=== PATIENT | male | born 1950 | race American Indian/Alaskan Native ===

== ENCOUNTER 2018-03-29 13:26 | Day surgery (SDC) | payer MEDICARE ==
[~2018-03-29 13:26] MED LIST: ANCEF/STERILE WATER 2 GM/20 ML IV NR
[2018-03-29] MEDS ORDERED: DILAUDID IV PRN (14:23)
--- NOTE | 2018-03-29 14:24 | Anesthesia Day of Surgery ---
Anesthesia Day of Surgery - Day of Surgery Patient Examined: Yes Patient H&P Reviewed: Yes Patient is NPO: Yes Beta Blockers: No Cardiac Clearance: No Pulmonary Clearance: No
--- NOTE | 2018-03-29 14:42 | Anesthesia Day of Surgery ---
Anesthesia Day of Surgery - Day of Surgery Patient Examined: Yes Patient H&P Reviewed: Yes Patient is NPO: Yes Beta Blockers: No Cardiac Clearance: No Pulmonary Clearance: No
--- NOTE | 2018-03-29 14:42 | Anesthesia Consultation ---
Anesthesia Consult and Med Hx Date of service: 03/29/18 - Airway Anesthetic Teeth Evaluation: Good ROM Head & Neck: Adequate Mallampati Class: Class III Intubation Access Assessment: Possibly Difficult - Pulmonary Exam CTA: Yes - Cardiac Exam Cardiac Exam: RRR - Pre-Operative Health Status ASA Pre-Surgery Classification: ASA3 - Pulmonary Hx Smoking: Yes (STOPPED 1995 , 1 PPD X 20 YRS) Hx Asthma: Yes (INHALER PRN) Hx Sleep Apnea: No (GREG PRE SCREEN HIGH RISK) - Cardiovascular System Hx Hypertension: Yes (1995) Hx Peripheral Vascular Disease: Yes (RT BKA) - Other Systems Hx Cancer: No
--- NOTE | 2018-03-29 14:47 | Anesthesia Consultation ---
Anesthesia Consult and Med Hx Date of service: 03/29/18 - Airway Anesthetic Teeth Evaluation: Poor ROM Head & Neck: Inadequate Mental/Hyoid Distance: Inadequate Mallampati Class: Class III Intubation Access Assessment: Possibly Difficult - Pulmonary Exam CTA: Yes - Cardiac Exam Cardiac Exam: RRR - Pre-Operative Health Status ASA Pre-Surgery Classification: ASA4 Nerve Block: fpc chronically ill - Pulmonary Hx Smoking: Yes (STOPPED 1995 , 1 PPD X 20 YRS) Hx Asthma: Yes (INHALER PRN) Hx Sleep Apnea: No (GREG PRE SCREEN HIGH RISK) - Cardiovascular System Hx Hypertension: Yes (1995) Hx Peripheral Vascular Disease: Yes (RT BKA) - Central Nervous System Hx Neuromuscular Disorder: No (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
[2018-03-29] MEDS ORDERED: NACL 0.9% 1000 ML 1,000 ML IV SCH (15:00)
[2018-03-29] MEDS ORDERED: SUBLIMAZE ONE (16:38)
[2018-03-29] MEDS ORDERED: XYLOCAINE MPF 2% ONE (16:38)
[2018-03-29] MEDS ORDERED: DIPRIVAN 10 MG/ML IV ONE (16:39)
[2018-03-29] MEDS ORDERED: WATER FOR IRRIG STERILE IR ONE (17:00)
[2018-03-29] MEDS ORDERED: ZOFRAN ONE (17:44)
--- NOTE | 2018-03-29 17:44 | Short Stay Summary ---
Short Stay Documentation Date of service: 03/29/18 - History H&P: obtained from office - Allergies and Medications Current Medications: Allergies No Known Allergies Allergy (Verified 03/28/18 10:52) Home Medications Medication Instructions Recorded Confirmed Last Taken Type AtorvaSTATin [Lipitor] 10 mg PO QHS 03/28/18 03/29/18 03/26/18 09:00 History Budesonide/Formoterol Fumarate 10.2 gm IH PRN PRN 03/28/18 03/29/18 03/29/18 07: 00 History [Symbicort 160-4.5 Mcg Inhaler] Carvedilol [Coreg] 12.5 mg PO BID 03/28/18 03/29/18 03/29/18 07:00 History Ciprofloxacin HCl [Cipro] 500 mg PO BID 03/28/18 03/29/18 03/28/18 17:00 History Clopidogrel Bisulfate [Plavix] 75 mg PO DAILY 03/28/18 03/28/18 03/27/18 History Enalapril Maleate [Vasotec] 10 mg PO BID 03/28/18 03/29/18 03/29/18 07:00 History HYDROcodone/APAP 5-325 [[place] 1 each PO Q6HR PRN 03/28/18 03/29/18 03/25/18 17: 00 History 5/325] Ondansetron [Zofran TAB] 4 mg PO Q8HR PRN 03/28/18 03/29/18 03/28/18 17:00 History Potassium Chloride [K-Dur] 20 meq PO QDAY 03/28/18 03/29/18 03/29/18 07:00 History Active Medications Cefazolin Sodium (Ancef/Sterile Water 2 Gm/20 Ml) 2 gm IV PREOP NR Stop: 03/29/18 23:59 Hydromorphone HCl (Dilaudid) 0.5 mg IV Q10MIN PRN PRN Reason: Pain , Severe (7-10) Stop: 03/29/18 18:00 Sodium Chloride (Nacl 0.9% 1000 Ml) 1,000 mls @ 75 mls/hr IV DIRECT RONALD Last Admin: 03/29/18 15:10 Dose: 75 mls/hr - Brief post op/procedure progress note Date of procedure: 03/29/18 Pre-op diagnosis: rt ureteral stone Post-op diagnosis: same Procedure: cystoscopy, rpg, ureteroscopy, laser stent with external string Anesthesia: MISSY Surgeon: SOBEIDA MEDEIROS Pathology: none Condition: stable - Hospital course Hospital course: pt has cipro & dilaudid post op info on chart - Disposition Condition at discharge: Stable Disposition: DC-01 TO HOME OR SELFCARE Short Stay Discharge Plan Follow up with: KARIE RUBIO MD [Primary Care Provider] - 7 Days
[2018-03-29] MEDS ORDERED: DILAUDID ONE (18:02)
[2018-03-29] MEDS ORDERED: DILAUDID IV ONE (18:15)
[2018-03-29] MEDS ORDERED: TYLENOL PO PRN (18:49)
--- NOTE | 2018-03-29 20:26 | Operative Report ---
PREOPERATIVE DIAGNOSIS: Right ureteral stone. POSTOPERATIVE DIAGNOSES: Right ureteral stone. PROCEDURES: Cystoscopy, left retrograde pyelogram, right rigid ureteroscopy, holmium laser lithotripsy, basket stone extraction x 2, and stent placement (6 [place] 28 cm with an external string). SURGEON: Donald Acevedo MD ANESTHESIA: General. ESTIMATED BLOOD LOSS: Minimal. FLUIDS: Crystalloid. COMPLICATIONS: No complications. INDICATIONS: This patient is a 67-year-old gentleman with persistent right flank pain due to stones, presents now for intervention. DESCRIPTION OF PROCEDURE: The patient was taken to the operative suite, placed in a supine position. After adequate general anesthesia, placed in a dorsal lithotomy position, prepped and draped in a sterile fashion. Pancystourethroscopy was performed with 22 [place] Storz cystoscope. No urethral abnormalities. His prostate displayed mild trilobar prostatic obstruction. His bladder, no tumors were noted. Ureteral stone could be appreciated at the right ureteral orifice. Left retrograde pyelogram was obtained with an 8 [place] catheter and 8 mL of contrast. No filling defects or obstruction. A 0.035 Glidewire x 2 was placed. Rigid ureteroscopy, a lead stone could be appreciated, holmium lithotripsy using a 365-micron fiber starting at 4 min going up to 6 min. The stone was fragmented and the parts were extracted. The scope was reinserted several centimeters more proximal. A second stone could be appreciated. This was able to be engaged with a basket and removed without difficulty. Ureteroscopy up to the renal pelvis was performed. No other stones could be appreciated. A 6 [place] 28 cm double-J stent was left indwelling with an external string confirmed under fluoroscopy. Rectal exam was benign. He was extubated and taken to recovery room. The patient has Cipro and Dilaudid. He is to follow up in the office. JOB# [id number] [facility]/[place]
[2018-03-30 00:33] VITALS: BP 145/78
--- NOTE | 2018-03-30 07:17 | Fluoroscopy Report ---
FLUOROSCOPY RETROGRADE UROGRAPHY: HISTORY: Right ureteral stone. FINDINGS: Fluoroscopy was provided by radiology during retrograde urography by the urologist. 6 fluoroscopic images were captured. The left retrograde pyelogram is normal. Per the operative notes, 2 stones were removed from the distal right ureter. Right ureteroscopy was performed. The final images demonstrate placement of a right ureteral stent which adequately drains the collecting system on the final images. IMPRESSION: Distal right ureteral stone removal. Right ureteral stent placement.
== END 2018-03-29 20:10 | disposition home or self-care (01) ==
LOC: OR 13:26
PROVIDERS: ATTEND Urology
DX: N20.1 Calculus of ureter (principal); E78.00 Pure hypercholesterolemia, unspecified; I11.0 Hypertensive heart disease with heart failure; I50.9 Heart failure, unspecified; I73.9 Peripheral vascular disease, unspecified; J45.909 Unspecified asthma, uncomplicated; Z89.511 Acquired absence of right leg below knee; Z87.891 Personal history of nicotine dependence
CPT/HCPCS: 36415; 52356; 74420; 84132; A4217; C1758; C1769; C2617; J0690; J1170; J2405; J2704; J3010; J7030; Q9967

== ENCOUNTER 2019-04-16 06:00 | Observation (INO) | payer MEDICARE ==
[2019-04-13 09:18] LABS: Basophils # (Auto) 0.1 K/mm3 (0.0-0.1); Basophils % (Auto) 0.8 % (0.0-1.8); Eosinophils # (Auto) 0.3 K/mm3 (0.0-0.4); Eosinophils % (Auto) 2.1 % (0.0-4.3); Hematocrit 39.9 % (35.5-45.6); Hemoglobin 13.5 gm/dl (11.8-15.2); Lymphocytes # (Auto) 1.3 K/mm3 (1.2-5.4); Lymphocytes % (Auto) 10.5 % (13.4-35.0); Mean Corpuscular HGB Conc 34 % (32-34); Mean Corpuscular Volume 88 fl (84-94); Monocytes # (Auto) 0.9 K/mm3 (0.0-0.8); Monocytes % (Auto) 7.3 % (0.0-7.3); Platelet Count 445 K/mm3 (140-440); Red Blood Count 4.52 M/mm3 (3.65-5.03); Red Cell Distribution Width 13.3 % (13.2-15.2)
[2019-04-13 09:27] LABS: INR 0.95 (0.87-1.13)
[2019-04-13 09:28] LABS: Partial Thromboplastin Time 22.8 Sec. (24.2-36.6)
--- NOTE | 2019-04-13 09:33 | Anesthesia Consultation ---
Anesthesia Consult and Med Hx Date of service: 04/16/19 - Airway Anesthetic Teeth Evaluation: Chipped ROM Head & Neck: Adequate Mental/Hyoid Distance: Adequate Mallampati Class: Class II Intubation Access Assessment: Probably Good - Pre-Operative Health Status ASA Pre-Surgery Classification: ASA3 Proposed Anesthetic Plan: General (Pt requests GA; declined SAB) - Pulmonary Hx Smoking: Yes (STOPPED 1995 ( 1 PPD X 20 YRS)) Hx Asthma: Yes (INHALER PRN; last attack 10 years ago) Hx Sleep Apnea: No (GREG PRE SCREEN HIGH RISK) - Cardiovascular System Hx Hypertension: Yes (1995) Hx Coronary Artery Disease: Yes (CHF, dilated cardiomyopathy. 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 RLE amputation. EF 50-55%. Hypokinesis. ECHO, NST reports on chart as well as cardiac clearance
[2019-04-13 10:02] LABS: Alanine Aminotransferase 42 units/L (7-56); Albumin 3.2 g/dL (3.9-5); BUN/Creatinine Ratio 17; Blood Urea Nitrogen 15 mg/dL (9-20); Calcium 8.8 mg/dL (8.4-10.2); Hemolysis Index 8
[2019-04-16] MEDS ORDERED: NACL BACTERIOSTATIC INFILTRATI ONE (06:30)
[2019-04-16] MEDS ORDERED: LEVAQUIN 500MG/100ML 500 MG/100 ML BAG IV NR (06:45)
[2019-04-16] MEDS: NACL 0.9% 1000 ML 1,000 ML IV SCH ×2 (07:00→20:30)
--- NOTE | 2019-04-16 07:19 | Anesthesia Day of Surgery ---
Anesthesia Day of Surgery - Day of Surgery Patient Examined: Yes Patient H&P Reviewed: Yes Patient is NPO: Yes
[2019-04-16] MEDS ORDERED: VERSED IV NR (07:21)
[2019-04-16] MEDS ORDERED: XYLOCAINE MPF 2% ONE (07:37)
[2019-04-16] MEDS ORDERED: DILAUDID ONE ×2 (07:37→10:36)
[2019-04-16] MEDS ORDERED: DIPRIVAN 10 MG/ML IV ONE (07:37)
[2019-04-16] MEDS ORDERED: WATER FOR IRRIG STERILE IR ONE ×2 (07:39)
[2019-04-16] MEDS ORDERED: NACL 0.9% IR ONE ×2 (07:39)
[2019-04-16] MEDS ORDERED: SUBLIMAZE ONE (08:46)
[2019-04-16] MEDS ORDERED: NACL 0.9% 1000 ML 1,000 ML ONE (09:41)
[2019-04-16] MEDS ORDERED: ZOFRAN ONE (09:43)
[2019-04-16] MEDS ORDERED: NARCAN 0.4 MG/1 ML IV PRN (09:52)
[2019-04-16] MEDS ORDERED: AMBIEN PO PRN (09:52)
[2019-04-16] MEDS ORDERED: NORCO 5/325 PO PRN (09:52)
--- NOTE | 2019-04-16 09:52 | Short Stay Summary ---
Short Stay Documentation Date of service: 04/16/19 - History H&P: obtained from office - Allergies and Medications Current Medications: Allergies No Known Allergies Allergy (Verified 03/28/18 10:52) Home Medications Medication Instructions Recorded Confirmed Last Taken Type AtorvaSTATin [Lipitor] 5 mg PO QHS 03/28/18 04/06/19 04/16/19 04:00 History Budesonide/Formoterol Fumarate 10.2 gm IH PRN PRN 03/28/18 04/16/19 04/14/19 History [Symbicort 160-4.5 Mcg Inhaler] Carvedilol [Coreg] 12.5 mg PO BID 03/28/18 04/03/19 04/16/19 04:00 History Clopidogrel Bisulfate [Plavix] 75 mg PO DAILY 03/28/18 04/16/19 04/09/19 History Enalapril Maleate [Vasotec] 10 mg PO DAILY 03/28/18 04/06/19 04/16/19 04:00 History Potassium Chloride [K-Dur] 20 meq PO QDAY 03/28/18 04/03/19 04/16/19 04:00 History Lisinopril [Zestril TAB] 10 mg PO QDAY 04/06/19 04/06/19 04/16/19 04:00 History Active Medications Sodium Chloride (Nacl 0.9% 1000 Ml) 1,000 mls @ 75 mls/hr IV DIRECT RONALD Last Admin: 04/16/19 07:00 Dose: 75 mls/hr Documented by: Midazolam HCl (Versed) 2 mg IV ONCE NR Stop: 04/16/19 10:00 Last Admin: 04/16/19 07:45 Dose: 2 mg Documented by: - Brief post op/procedure progress note Date of procedure: 04/16/19 Pre-op diagnosis: retention, bph,elevated psa Post-op diagnosis: other (bladder stone) Procedure: cysto, removal bladder stone, rpg, pus bx, cystogram, TURP Anesthesia: KJA Surgeon: SOBEIDA MEDEIROS Estimated blood loss: 50-100ml Pathology: list (PROSTATE CORES / PROSTATE CHIPS) Specimen disposition: to lab Condition: stable - Hospital course Hospital course: ULTRAM, PERCOCET, BACTRIM ON CHART [facility] - Disposition Condition at discharge: Stable Short Stay Discharge Plan Follow up with: KARIE RUBIO MD [Primary Care Provider] - 7 Days
--- NOTE | 2019-04-16 09:53 | Ultrasound Report ---
ULTRASOUND TRANSRECTAL History: Elevated PSA, guidance for prostate biopsy Findings: 9 transrectal grayscale ultrasound images are presented during prostate biopsy by the urologist. Images demonstrate a prostate volume of 31.2 cc. Prostate biopsy was performed. Please correlate with the procedural report as needed. Impression: Successful ultrasound-guided prostate biopsy.
[2019-04-16] MEDS ORDERED: NON-FORMULARY (Budesonide/Formoterol Fumarate [Symbicort 160-4.5 Mcg Inhaler] 10.2 GM) IH PRN (09:58)
[2019-04-16] MEDS ORDERED: SORBITOL-MANNITOL IRRIG IR ONE (09:59)
[2019-04-16] MEDS ORDERED: NON-FORMULARY (Enalapril Maleate [Vasotec] 10 MG) PO SCH (10:00)
--- NOTE | 2019-04-16 10:28 | Operative Report ---
PREOPERATIVE DIAGNOSES: Urinary retention, benign prostatic hypertrophy, elevated PSA. POSTOPERATIVE DIAGNOSES: Urinary retention, benign prostatic hypertrophy, elevated PSA, bladder stone. PROCEDURE: Cystoscopy, removal of bladder stone, bilateral retrograde pyelograms, prostate ultrasound biopsy, transurethral resection of the prostate, cystogram. SURGEON: Donald Acevedo M.D. ANESTHESIA: General. ESTIMATED BLOOD LOSS: Minimal. FLUIDS: Crystalloid. COMPLICATIONS: No complications. INDICATIONS: This patient is a 68-year-old gentleman known to my service initially with a kidney stone, which was treated last year, also was found to have an elevated PSA. Biopsy last year was negative. It was 4.2. However, his PSA continues to rise. He underwent an MRI of the prostate. It was area seen on prostate on MRI on the left side suggestive of possible cancer, prompting a repeat biopsy. He also has had difficulty urinating and went into urinary retention. Risks, benefits, and complications were explained. The patient agreed to proceed with surgical intervention. He was cleared by his curb setter to come off his blood thinner. DESCRIPTION OF PROCEDURE: The patient was taken to the operative suite, placed in a supine position. After adequate general anesthesia, placed in a dorsal lithotomy position, prepped and draped in a sterile fashion. Pancystourethroscopy was performed with a 22-[place] Storz cystoscope, no urethral abnormalities. Prostate displayed moderate trilobar obstruction, his bladder, small stone was noted. No tumors. He does have a significant diffuse trabeculation. Using alligator graspers, the stone was extracted without difficulty and will be sent for analysis. Bilateral retrograde pyelograms were obtained with an 8 [place] catheter and 8 mL of contrast. No filling defects or obstruction. However, the patient did have a significant J hooking consistent with bladder outlet obstruction. Next, prostate using ultrasound probe, transrectal ultrasound was performed in a systematic fashion. No significant lesions on ultrasound could be appreciated, however. Attention was taken to the left side due to MRI findings. Template biopsy was taken base near the apex bilaterally 12 regions 2 cores. The patient tolerated well. Rectal, no suspicious lesions. Next, using a 27-[place]rist[place] resectoscope and loop with the cutting and coag on 160 and 60 transurethral resection of the prostate was performed in a systematic fashion, taking the median lobe down in the right and left lateral lobes respectively. The chips were evacuated out with the Ellik evacuator, external sphincter and external sphincter, veru and ureteral orifices were intact. A 24-[place] 3-way catheter was placed to a Lassiter drip and gentle traction, catheter irrigated well. He was extubated and taken to recovery room in stable condition. He will be observed overnight and go home on Bactrim, Ultram and [place]. JOB# [id number] [facility]
[2019-04-16] MEDS ORDERED: ZOFRAN IV PRN (10:34)
[2019-04-16] MEDS ORDERED: DILAUDID IV PRN (10:34)
[2019-04-16] MEDS: BROVANA NEBU IH SCH ×2 (12:50→20:51)
[2019-04-16] MEDS: PULMICORT IH SCH ×2 (12:51→20:52)
--- NOTE | 2019-04-16 13:02 | Post Anesthesia Evaluation ---
- Post Anesthesia Evaluation Patient Participated: Yes Airway Patent: Yes Stable Respiratory Function: Yes Nausea/Vomiting: No Temp > 96.8F: Yes Pain Manageable: Yes Adequeate Hydration: Yes Anesthesia Complications: No
[2019-04-16] MEDS: DITROPAN XL PO SCH (14:11)
[2019-04-16] MEDS: K-DUR PO SCH (14:11)
[2019-04-16] MEDS: ZESTRIL PO SCH (14:11)
[2019-04-16] MEDS: COREG PO SCH ×2 (14:12→21:33)
[2019-04-16] MEDS: ANCEF/NS 1 GM/50 ML 1 GM/50 ML BAG IV SCH ×2 (16:00→22:47)
--- NOTE | 2019-04-16 16:11 | Consultation ---
History of Present Illness - Reason for Consult Consult date: 04/16/19 Hypertension, CHF, COPD Requesting physician: SOBEIDA MEDEIROS - History of Present Illness Patient is 68 yo with hypertension, hyperlipidemia, CHF and COPD. He presented with BPH, urinary retention and he is s/p cystoscopy, bladder stone removal and TURP today 04/16/19. The hospitalist service has been consulted for management of multiple comorbidities. Currently only complains of mild pain at surgical site. No chest pain, no shortness of breath, no fever. He is concerned that his blood glucose levels have been high and denies any history of diabetes. Currently vitals stable. Past History Past Medical History: COPD, heart failure, hypertension, hyperlipidemia Past Surgical History: TURP (this admission), Other (Right BKA) Social history: lives with family, full code. denies: smoking, alcohol abuse, IV drug use Family history: hypertension Medications and Allergies Allergies Allergy/AdvReac Type Severity Reaction Status Date / Time No Known Allergies Allergy Verified 03/28/18 10:52 Home Medications Medication Instructions Recorded Confirmed Last Taken Type AtorvaSTATin [Lipitor] 5 mg PO QHS 03/28/18 04/06/19 04/16/19 04:00 History Budesonide/Formoterol Fumarate 10.2 gm IH PRN PRN 03/28/18 04/16/19 04/14/19 History [Symbicort 160-4.5 Mcg Inhaler] Carvedilol [Coreg] 12.5 mg PO BID 03/28/18 04/03/19 04/16/19 04:00 History Clopidogrel Bisulfate [Plavix] 75 mg PO DAILY 03/28/18 04/16/19 04/09/19 History Enalapril Maleate [Vasotec] 10 mg PO DAILY 03/28/18 04/06/19 04/16/19 04:00 History Potassium Chloride [K-Dur] 20 meq PO QDAY 03/28/18 04/03/19 04/16/19 04:00 History Lisinopril [Zestril TAB] 10 mg PO QDAY 04/06/19 04/06/19 04/16/19 04:00 History Active Meds: Active Medications Acetaminophen/Hydrocodone Bitart ([place] 5/325) 2 each PO Q4H PRN PRN Reason: Pain, Moderate (4-6) Arformoterol Tartrate (Brovana Nebu) 15 mcg IH Q12HRT [facility] Last Admin: 04/16/19 12:50 Dose: 15 mcg Documented by: Atorvastatin Calcium (Lipitor) 5 mg PO QHS [facility] Budesonide (Pulmicort) 0.5 mg IH Q12HRT [facility] Last Admin: 04/16/19 12:51 Dose: 0.5 mg Documented by: Carvedilol (Coreg) 12.5 mg PO BID [facility] Last Admin: 04/16/19 14:12 Dose: Not Given Documented by: Hydromorphone HCl (Dilaudid) 0.5 mg IV Q10MIN PRN PRN Reason: Pain , Severe (7-10) Stop: 04/16/19 20:00 Last Admin: 04/16/19 10:45 Dose: 0.5 mg Documented by: Sodium Chloride (Nacl 0.9% 1000 Ml) 1,000 mls @ 75 mls/hr IV DIRECT [facility] Last Admin: 04/16/19 07:00 Dose: 75 mls/hr Documented by: Cefazolin Sodium (Ancef/Ns 1 Gm/50 Ml) 1 gm in 50 mls @ 100 mls/hr IV Q8H [facility]; Protocol Stop: 04/16/19 23:29 Lisinopril (Zestril) 10 mg PO QDAY [facility] Last Admin: 04/16/19 14:11 Dose: Not Given Documented by: Morphine Sulfate (Morphine) 4 mg IV Q4H PRN PRN Reason: Pain , Severe (7-10) Naloxone HCl (Narcan 0.4 Mg/1 Ml) 0.1 mg IV Q2MIN PRN PRN Reason: Res Rate </= 8 or 02 SAT < 92% Ondansetron HCl (Zofran) 4 mg IV Q8H PRN PRN Reason: Nausea And Vomiting Oxybutynin Chloride (Ditropan Xl) 10 mg PO QDAY [facility] Last Admin: 04/16/19 14:11 Dose: Not Given Documented by: Potassium Chloride (K-Dur) 20 meq PO QDAY [facility] Last Admin: 04/16/19 14:11 Dose: Not Given Documented by: Zolpidem Tartrate (Ambien) 5 mg PO QHS PRN PRN Reason: Sleep Review of Systems All systems: negative (No fever, no cough, no chest pain. All other systems reviewed are negative) Exam - Physical Exam Narrative exam: Gen: Not in acute distress, lying in bed, obese HEENT: Normocephalic, atraumatic Neck: supple, no JVD Heart: S1 and S2 reg, no murmurs, rubs or gallop Lungs: Clear, no crackles, no wheeze Abd: soft, non tender, non distended, normal BS Ext: No edema, no clubbing, no cyanosis, right BKA Neuro: Awake,alert, oriented x 3, moves all ext, non focal Psych:Normal mood : Allen catheter in - Constitutional Vitals: Temp Pulse Resp BP Pulse Ox 98.0 F 79 20 177/79 97 04/16/19 15:19 04/16/19 15:19 04/16/19 15:19 04/16/19 15:19 04/16/19 15:19 Results - Labs CBC & Chem 7: 04/13/19 Unknown 04/13/19 Unknown Labs: Abnormal lab results 04/16/19 04/16/19 Range/Units 07:02 10:08 POC Glucose 222 H 191 H (70-105) Assessment and Plan BPH and urinary retention s/p cystostomy, bladder stone removal s/p TURP Admitted by Urology COPD stable No shortness of breath Chronic CHF,details unclear No exacerbation Hypertension Monitor BP s/p right BKA Elevated blood glucose. He however denies history of diabetes Check A1C may need to initiate anti-diabetic if a1c>6.5 Full code status Patient was on plavix on hold for 1 week prior to surg. he cannot tell exact reason for Plavix. he denies CAD Thanks for consult.Will follow
[2019-04-16] MEDS: ZOFRAN IV PRN (19:33)
[2019-04-16] MEDS: NACL 0.9% IR SCH ×4 (19:33→23:49)
[2019-04-16] MEDS ORDERED: NACL 0.9% 1,000 ML IR ONE (19:42)
[2019-04-16] MEDS: MORPHINE IV PRN ×2 (20:02→23:48)
[2019-04-17] MEDS: NACL 0.9% IR SCH ×2 (00:03→05:55)
[2019-04-17] MEDS: MORPHINE IV PRN ×2 (04:26→10:44)
[2019-04-17] MEDS: ZOFRAN IV PRN (04:27)
--- NOTE | 2019-04-17 07:43 | Fluoroscopy Report ---
FLUOROSCOPY RETROGRADE UROGRAPHY: FLUOROSCOPY CYSTOGRAM STATIC: HISTORY: Urinary retention. FINDINGS: Fluoroscopy was provided by radiology during retrograde urography by the urologist. 10 fluoroscopic images were captured. There is adequate filling of the ureters and intrarenal collecting systems with no filling defects or anatomic abnormalities identified. Only one image of the cystogram is provided demonstrating a bladder stone. The stone was extracted with a grasper. Please correlate with the procedural report as needed. IMPRESSION: Retrograde pyelograms within normal limits. Bladder stone removed. A
[2019-04-17 07:46] VITALS: BP 126/36
[2019-04-17 09:03] LABS: BUN/Creatinine Ratio 11; Blood Urea Nitrogen 14 mg/dL (9-20); Calcium 8.2 mg/dL (8.4-10.2); Hemolysis Index 1
[2019-04-17 09:12] LABS: Basophils % (Auto) 0.2 % (0.0-1.8); Eosinophils % (Auto) 0.3 % (0.0-4.3); Hematocrit 33.9 % (35.5-45.6); Hemoglobin 11.4 gm/dl (11.8-15.2); Lymphocytes % (Auto) 7.7 % (13.4-35.0); Mean Corpuscular HGB Conc 34 % (32-34); Mean Corpuscular Volume 88 fl (84-94); Monocytes # (Auto) 0.8 K/mm3 (0.0-0.8); Monocytes % (Auto) 5.8 % (0.0-7.3); Platelet Count 374 K/mm3 (140-440); Red Blood Count 3.84 M/mm3 (3.65-5.03); Red Cell Distribution Width 12.6 % (13.2-15.2)
--- NOTE | 2019-04-17 09:33 | Progress Note ---
Assessment and Plan Assessment and plan: Patient is 68 yo with hypertension, hyperlipidemia, CHF and COPD. He presented with BPH, urinary retention and he is s/p cystoscopy, bladder stone removal and TURP today 04/16/19. The hospitalist service has been consulted for management of multiple comorbidities. Currently only complains of mild pain at surgical site. No chest pain, no shortness of breath, no fever. He is concerned that his blood glucose levels have been high and denies any history of diabetes. Currently vitals stable. Pre-diabetic. A1C 6.3 BPH and urinary retention s/p cystostomy, bladder stone removal s/p TURP Admitted by Urology COPD stable No shortness of breath Chronic CHF,details unclear No exacerbation Hypertension Monitor BP s/p right BKA Full code status Patient was on plavix on hold for 1 week prior to surg. he cannot tell exact reason for Plavix But resumed and advised to discuss with his PCP. he denies CAD History Interval history: Patient seen and examined, resting comfortably Hospitalist Physical - Physical exam Narrative exam: VITAL SIGNS: Reviewed. GENERAL: The patient appeared well nourished and normally developed, Vital signs as documented. HEAD: No signs of head trauma. EYES: Pupils are equal. Extraocular motions intact. EARS: Hearing grossly intact. MOUTH: Oropharynx is normal. NECK: No adenopathy, no JVD. CHEST: Chest with clear breath sounds bilaterally. No wheezes, rales, or rhonchi. CARDIAC: Regular rate and rhythm. S1 and S2, without murmurs, gallops, or rubs. VASCULAR: No Edema. Peripheral pulses normal and equal in all extremities. ABDOMEN: Soft, non tender and non distended. No rebound or guarding, and no masses palpated. Bowel Sounds normal. MUSCULOSKELETAL: Right BKA Good range of motion of all major joints. Extremities without clubbing, cyanosis or edema. NEUROLOGIC EXAM: Alert and oriented x 3 No focal sensory or strength deficits. Speech normal. Follows commands. PSYCHIATRIC: Mood normal. SKIN: No rash or lesions. : Allen in place - Constitutional Vitals: Temp Pulse Resp BP Pulse Ox 98.2 F 75 20 126/36 92 04/17/19 07:38 04/17/19 07:38 04/17/19 07:38 04/17/19 07:38 04/17/19 07:38 Results - Labs CBC & Chem 7: 04/17/19 08:24 04/17/19 08:24 Labs: Laboratory Last Values WBC 13.0 K/mm3 (4.5-11.0) H 04/17/19 08:24 RBC 3.84 M/mm3 (3.65-5.03) 04/17/19 08:24 Hgb 11.4 gm/dl (11.8-15.2) L 04/17/19 08:24 Hct 33.9 % (35.5-45.6) L 04/17/19 08:24 MCV 88 fl (84-94) 04/17/19 08:24 MCH 30 pg (28-32) 04/17/19 08:24 MCHC 34 % (32-34) 04/17/19 08:24 RDW 12.6 % (13.2-15.2) L 04/17/19 08:24 Plt Count 374 K/mm3 (140-440) 04/17/19 08:24 Lymph % (Auto) 7.7 % (13.4-35.0) L 04/17/19 08:24 Prentiss % (Auto) 5.8 % (0.0-7.3) 04/17/19 08:24 Eos % (Auto) 0.3 % (0.0-4.3) 04/17/19 08:24 Baso % (Auto) 0.2 % (0.0-1.8) 04/17/19 08:24 Lymph # 1.0 K/mm3 (1.2-5.4) L 04/17/19 08:24 Prentiss # 0.8 K/mm3 (0.0-0.8) 04/17/19 08:24 Eos # 0.0 K/mm3 (0.0-0.4) 04/17/19 08:24 Baso # 0.0 K/mm3 (0.0-0.1) 04/17/19 08:24 Seg Neutrophils % 86.0 % (40.0-70.0) H 04/17/19 08:24 Seg Neutrophils # 11.2 K/mm3 (1.8-7.7) H 04/17/19 08:24 PT 13.3 Sec. (12.2-14.9) 04/13/19 Unknown INR 0.95 (0.87-1.13) 04/13/19 Unknown APTT 22.8 Sec. (24.2-36.6) L 04/13/19 Unknown Sodium 135 mmol/L (137-145) L 04/17/19 08:24 Potassium 3.8 mmol/L (3.6-5.0) 04/17/19 08:24 Chloride 101.3 mmol/L (98-107) 04/17/19 08:24 Carbon Dioxide 21 mmol/L (22-30) L 04/17/19 08:24 17 mmol/L 04/17/19 08:24 BUN 14 mg/dL (9-20) 04/17/19 08:24 1.3 mg/dL (0.8-1.5) 04/17/19 08:24 Estimated GFR > 60 ml/min 04/17/19 08:24 11 % 04/17/19 08:24 Glucose 202 mg/dL (75-100) H 04/17/19 08:24 POC Glucose 194 (70-105) H 04/17/19 07:45 6.3 % (4-6) H 04/17/19 08:24 Calcium 8.2 mg/dL (8.4-10.2) L 04/17/19 08:24 0.80 mg/dL (0.1-1.2) 04/13/19 Unknown AST 30 units/L (5-40) 04/13/19 Unknown ALT 42 units/L (7-56) 04/13/19 Unknown 83 units/L (35-129) 04/13/19 Unknown 7.3 g/dL (6.3-8.2) 04/13/19 Unknown 3.2 g/dL (3.9-5) L 04/13/19 Unknown 0.8 % 04/13/19 Unknown Blood Type B POSITIVE 04/16/19 06:50 Antibody Screen Negative 04/16/19 06:50 Active Medications - Current Medications Current Medications: Generic Name Dose Route Start Last Admin Trade Name Freq PRN Reason Stop Dose Admin Acetaminophen/Hydrocodone Bitart 2 each 04/16/19 09:52 [place] 5/325 PO Q4H PRN Pain, Moderate (4-6) Arformoterol Tartrate 15 mcg 04/16/19 11:00 04/16/19 20:51 Brovana Nebu IH Not Given Q12HRT RONALD Atorvastatin Calcium 5 mg 04/16/19 22:00 04/16/19 21:34 Lipitor PO 5 mg QHS RONALD Administration Budesonide 0.5 mg 04/16/19 11:00 04/16/19 20:52 Pulmicort IH Not Given Q12HRT RONALD Carvedilol 12.5 mg 04/16/19 12:00 04/16/19 21:33 Coreg PO 12.5 mg BID RONALD Administration Sodium Chloride 1,000 mls @ 75 mls/hr 04/16/19 06:19 04/16/19 20:30 Nacl 0.9% 1000 Ml IV 75 mls/hr DIRECT RONALD Administration Lisinopril 10 mg 04/16/19 11:00 04/16/19 14:11 Zestril PO Not Given QDAY RONALD Morphine Sulfate 4 mg 04/16/19 09:52 04/17/19 04:26 Morphine IV 4 mg Q4H PRN Administration Pain , Severe (7-10) Naloxone HCl 0.1 mg 04/16/19 09:52 Narcan 0.4 Mg/1 Ml IV Q2MIN PRN Res Rate </= 8 or 02 SAT < 92% Ondansetron HCl 4 mg 04/16/19 09:52 04/17/19 04:27 Zofran IV 4 mg Q8H PRN Administration Nausea And Vomiting Oxybutynin Chloride 10 mg 04/16/19 11:00 04/16/19 14:11 Ditropan Xl PO Not Given QDAY [facility] Potassium Chloride 20 meq 04/16/19 11:00 04/16/19 14:11 K-Dur PO Not Given QDAY [facility] Sodium Chloride 2,000 ml 04/16/19 17:00 04/17/19 05:55 Nacl 0.9% IR 2,000 ml DIRECT RONALD Administration Zolpidem Tartrate 5 mg 04/16/19 09:52 Ambien PO QHS PRN Sleep
[2019-04-17] MEDS: COREG PO SCH (10:44)
[2019-04-17] MEDS: DITROPAN XL PO SCH (10:45)
[2019-04-17] MEDS: K-DUR PO SCH (10:45)
[2019-04-17] MEDS: ZESTRIL PO SCH (10:46)
[2019-04-17] MEDS: BROVANA NEBU IH SCH (11:00)
[2019-04-17] MEDS: PULMICORT IH SCH (11:02)
== END 2019-04-17 15:00 | disposition home or self-care (01) ==
LOC: OR 06:00 → 3B-SURG 09:52
PROVIDERS: ADMIT Urology; ATTEND Urology
DX: N40.1 Benign prostatic hyperplasia with lower urinary tract symptoms (principal); R33.9 Retention of urine, unspecified; I10 Essential (primary) hypertension; E78.5 Hyperlipidemia, unspecified; I11.0 Hypertensive heart disease with heart failure; I50.9 Heart failure, unspecified; J44.9 Chronic obstructive pulmonary disease, unspecified; R73.09 Other abnormal glucose; R33.8 Other retention of urine; N52.01 Erectile dysfunction due to arterial insufficiency; E78.00 Pure hypercholesterolemia, unspecified; Z98.890 Other specified postprocedural states; Z79.899 Other long term (current) drug therapy; Z89.512 Acquired absence of left leg below knee
CPT/HCPCS: 36415; 52310; 52601; 74420; 74430; 76872; 80048; 80053; 82962; 83036; 85025; 85610; 85730; 86850; 86900; 86901; 88305; 88312; 88342; 94640; 96365; 96366; 96375; 96376; A4217; A9270; C1758; G0378; J0690; J1170; J1956; J2250; J2270; J2405; J2704; J3010; J7030; Q9967; 88344; 96361